=== PATIENT | female | born 1980 | race African-American/Black ===

== ENCOUNTER 2018-08-10 10:58 | Outpatient (CLI) | payer BC ==
--- NOTE | 2018-08-10 13:18 | MRI ---
MRI BRAIN WITH AND WITHOUT IV CONTRAST: Date: 08/10/18 HISTORY: Headache. Family history of brain cancer (mother and maternal aunt). FINDINGS: No evidence of infarct, hemorrhage, mass, midline shift, or abnormal extra-axial fluid collections ar e seen. The ventricular size is normal and the basilar cisterns are patent. No abnormal postcontrast enhancement is seen. No restricted diffusion is identified. No blood products are noted on the gradie nt echo sequences. No significant abnormalities are noted on the highly sensitive FLAIR images. The v isualized paranasal sinuses and mastoid air cells are well aerated. IMPRESSION: Normal exam. POS: [facility]
== END 2018-08-10 10:59 | disposition home or self-care (01) ==
LOC: MRI 10:58
PROVIDERS: ATTEND Family Medicine
DX: R51 Headache (principal); Z80.8 Family history of malignant neoplasm of other organs or systems
CPT/HCPCS: 70553

== ENCOUNTER 2018-10-17 07:57 | Outpatient (CLI) | payer BC ==
--- NOTE | 2018-10-17 09:43 | ULT ---
LEFT BREAST ULTRASOUND: HISTORY: Palpable area of the left breast, felt 2 months ago. Palpable focus is no longer present. COMPARISON: None. FINDINGS: Static images of the left breast were performed. Static images are reviewed. FINDINGS: Static images demonstrate multiple left breast lymph nodes in the region of concern of a previous pal pable abnormality. The largest lymph node measures 2.7 x 1.0 cm. Results of the study were conveyed to the patient. IMPRESSION: BIRADS category 2, benign finding. RECOMMENDATION: Annual mammogram. POS: [facility]
== END 2018-10-17 07:58 | disposition home or self-care (01) ==
LOC: BICULT 07:57
PROVIDERS: ATTEND Family Medicine
DX: R92.8 Other abnormal and inconclusive findings on diagnostic imaging of breast (principal)

== ENCOUNTER 2019-11-13 09:45 | Outpatient (CLI) | payer BC ==
--- NOTE | 2019-11-13 10:47 | ULT ---
Exam: Transabdominal and endovaginal pelvic ultrasound HISTORY:Cramping with menses COMPARISON: None TECHNIQUE: Transabdominal and endovaginal imaging of the pelvis is performed. Ovaries are interrogate d with grayscale, color flow, Doppler imaging and spectral wave form analysis FINDINGS: Uterus: Incidental nabothian cysts are identified. There is a solid echotexture mass in the uterine m yometrium measuring 1.7 x 2.0 x 2.5 cm, compatible with intrauterine leiomyoma. There is mild convexity of the anterior margin suggesting a subserosal location Uterus measurin.7 x 4.6 x 7.7 cm. Endometrium: Homogeneous echotexture. Endometrium diameter: 1.2 cm. . Free fluid: None Right ovary: Not appreciated. Right ovary measurement: Not applicable Left ovary: Normal echotexture. 1.5 x 1.5 x 1.4 cm hypoechoic focus which may represent a complex cyst. The wall does appear to be thickened. Left ovary measurements: 2.4 x 2.0 x 3.0 cm Ovarian Doppler: There is vascular flow to the left ovary. IMPRESSION: 1. Intrauterine leiomyoma. 2. Homogeneous endometrium, measuring 1.2 cm. 3. Slightly complex left ovarian cyst is favored. Follow-up ultrasound in 8 weeks is recommended.
== END 2019-11-13 09:46 | disposition home or self-care (01) ==
LOC: BICULT 09:45
PROVIDERS: ATTEND Family Medicine
DX: R10.2 Pelvic and perineal pain (principal); N83.202 Unspecified ovarian cyst, left side; D25.9 Leiomyoma of uterus, unspecified
CPT/HCPCS: 76856

== ENCOUNTER 2020-04-03 15:39 | Outpatient (CLI) | payer BC ==
--- NOTE | 2020-04-03 16:41 | MMO ---
Bilateral MAMMO Bilat Screen [facility]. CLINICAL HISTORY: Patient is 39 years old and is seen for screening. The patient has the following family history of breast cancer: paternal aunt, malignant (generic). The patient has no personal history of cancer. VIEWS: The views performed were: bilateral craniocaudal with tomosynthesis and bilateral mediolateral oblique with tomosynthesis. FILMS COMPARED: The present examination has been compared to prior imaging studies performed at [facility] on 08/24/2018, and at [facility] on 10/17/2018. This study has been interpreted with the assistance of computer-aided detection. MAMMOGRAM FINDINGS: The breasts are almost entirely fat. There are no suspicious masses, suspicious calcifications, or new areas of architectural distortion. IMPRESSION: THERE IS NO MAMMOGRAPHIC EVIDENCE OF MALIGNANCY. A ROUTINE FOLLOW-UP MAMMOGRAM IN 1 YEAR IS RECOMMENDED. THE RESULTS OF THIS EXAM WERE SENT TO THE PATIENT. ACR BI-RADS Category 1 - Negative MAMMOGRAPHY NOTE: 1. A negative mammogram report should not delay a biopsy if a dominant of clinically suspicious mass is present. 2. Approximately 10% to 15% of breast cancers are not detected by mammography. 3. Adenosis and dense breasts may obscure an underlying neoplasm. Reported by: ADARSH CANO MD Electonically Signed: [id number]
== END 2020-04-03 15:40 | disposition home or self-care (01) ==
LOC: BICMAMMO 15:39
PROVIDERS: ATTEND Family Medicine
DX: Z12.31 Encounter for screening mammogram for malignant neoplasm of breast (principal); Z80.3 Family history of malignant neoplasm of breast
CPT/HCPCS: 77063; 77067

== ENCOUNTER 2020-11-19 11:58 | Outpatient (CLI) | payer BC | END 2020-11-19 11:59 | disposition home or self-care (01) | LOC: BICRAD 11:58 | PROVIDERS: ATTEND Physician Assistant | DX: M25.562 Pain in left knee (principal) ==

== ENCOUNTER 2021-07-15 15:18 | Outpatient (CLI) | payer BC | END 2021-07-15 15:19 | disposition home or self-care (01) | LOC: BICMAMMO 15:18 | PROVIDERS: ATTEND Family Medicine | DX: Z12.31 Encounter for screening mammogram for malignant neoplasm of breast (principal); Z80.3 Family history of malignant neoplasm of breast | CPT/HCPCS: 77063; 77067 ==

== ENCOUNTER 2022-11-28 00:34 | Emergency (ER) | payer BC ==
[2022-11-28] MEDS ORDERED: HYDROcodone/Acetaminophen 5/325 mg Tablet ONE (01:26)
[2022-11-28] MEDS ORDERED: Dexamethasone 10 MG/ML VIAL ONE (01:26)
[2022-11-28 02:16] LABS: BHCG - Serum Negative (NEGATIVE); Pregs Control Background? CLEAR/WHITE (CLR/WHITE); Pregs Control Bar Appear? YES (CONTROL BAR)
== END 2022-11-28 03:48 | disposition home or self-care (01) ==
LOC: ERS 00:34
DX: M54.41 Lumbago with sciatica, right side (principal)
CPT/HCPCS: 36415; 72131; 84703; 96372; J1100

== ENCOUNTER 2023-03-10 08:02 | Outpatient (CLI) | payer BC | END 2023-03-10 08:03 | disposition home or self-care (01) | LOC: BICRAD 08:02 | PROVIDERS: ATTEND Family Medicine | DX: Z01.818 Encounter for other preprocedural examination (principal) | CPT/HCPCS: 71046 ==

== ENCOUNTER 2023-05-03 16:46 | Emergency (ER) | payer BC ==
[~2023-05-03 16:46] MED LIST: Iopamidol-370 76% 500 ML MDV (1 ML CHARGE) ONE
[2023-05-03 18:18] LABS: #Monocytes 0.7 thou/uL (0.11-0.59); #Neutrophils 3.7 thou/uL (1.40-6.50); %Basophils 0.3 % (0.0-1.0); %Eosinophils 0.6 % (0.0-10.0); %Lymphocytes 34.2 % (21.0-51.0); %Monocytes 9.9 % (0.0-10.0); %Neutrophils 54.7 % (42.0-75.0); Hematocrit 34.2 % (36.0-47.0); Hemoglobin 10.7 g/dL (12.0-16.0); Mean Corpuscular HGB CONC 31.3 g/dL (32.0-36.0); Mean Corpuscular Hemoglobin 25.9 pg (27.0-31.0); Mean Corpuscular Volume 82.8 fl (78.0-98.0); Mean Platelet Volume 10.3 fL (7.4-10.4); Platelet Count 229 10x3/uL (130-400); RBC Distribution Width 14.7 % (11.5-14.5); Red Blood Cell (RBC) Count 4.13 mill/uL (4.20-5.40); White Blood Cell (WBC) Count 6.8 10x3/uL (4.8-10.8)
[2023-05-03 18:41] LABS: ALT (SGPT) Less than 7 U/L (8-55); AST (SGOT) 15 U/L (5-34); Albumin 3.8 g/dL (3.5-5.0); Alkaline Phosphatase 52 U/L (40-110); Anion Gap 12 mmol/L (10-20); BUN (Urea Nitrogen) 12 mg/dL (7.0-18.7); Bilirubin, Total 0.3 mg/dL (0.2-1.2); Calc. Creatinine Clearance 0 mL/min (70-130); Calcium 8.7 mg/dL (7.8-10.44); Carbon Dioxide 21 mmol/L (22-29); Chloride 109 mmol/L (98-107); Estimated GFR 102; Globulin 2.6 g/dL (2.4-3.5); Glucose 82 mg/dL (70-105); Lipase 28 U/L (8-78); Potassium 4.2 mmol/L (3.5-5.1); Protein, Total 6.4 g/dL (6.0-8.3); Sodium 138 mmol/L (136-145)
[2023-05-03 18:56] LABS: BHCG - Serum Negative (NEGATIVE); Pregs Control Background? CLEAR/WHITE (CLR/WHITE); Pregs Control Bar Appear? YES (CONTROL BAR)
[2023-05-03] MEDS ORDERED: Ondansetron PF 4 MG/2 ML Vial ONE (18:57)
[2023-05-03] MEDS ORDERED: Dicyclomine 20 MG TAB ONE (18:57)
[2023-05-03 19:25] LABS: Bacteria/HPF None Seen HPF (None Seen); Bilirubin Negative (Negative); Blood, Urine Negative (Negative); CAUTI Indications for Culture Pelvic or flank pain; Clarity Clear (Clear); Glucose, Urine (Dipstick) Normal (Negative); Ketone, Urine Negative (Negative); Leukocyte Negative Leu/uL (Negative); Nitrite Negative (Negative); Protein, Urine (Dipstick) Negative (Neg-Trace); RBC/HPF 0-3 HPF (0-3); Specific Gravity, Urine 1.018 (1.002-1.036); Squamous Epithelial 0-3 HPF (0-3); Urobilinogen Normal mg/dL (Less than 2); WBC/HPF 0-3 HPF (0-3); pH, Urine 6.5 (5.0-9.0)
[2023-05-03 19:27] LABS: Urine Culture Reflex No No
== END 2023-05-03 21:01 | disposition home or self-care (01) ==
LOC: ERS 16:46
DX: I72.8 Aneurysm of other specified arteries (principal); D64.9 Anemia, unspecified
CPT/HCPCS: 36415; 74177; 80053; 81001; 83690; 84703; 85025; 96374; J2405; Q9967

== ENCOUNTER 2023-07-05 07:29 | Outpatient (CLI) | payer BC ==
[2023-07-05] MEDS ORDERED: Iopamidol-370 76% 500 ML MDV (1 ML CHARGE) ONE (10:25)
== END 2023-07-05 07:30 | disposition home or self-care (01) ==
LOC: BICCT 07:29
PROVIDERS: ATTEND Thoracic Surgery (Cardiothoracic Vascular Surgery)
DX: I72.8 Aneurysm of other specified arteries (principal)
CPT/HCPCS: 74175

== ENCOUNTER 2023-09-29 09:00 | Outpatient (CLI) | payer BC | END 2023-09-29 09:01 | disposition home or self-care (01) | LOC: BICMAMMO 09:00 | PROVIDERS: ATTEND Family Medicine | DX: Z12.31 Encounter for screening mammogram for malignant neoplasm of breast (principal); Z80.3 Family history of malignant neoplasm of breast; Z98.890 Other specified postprocedural states | CPT/HCPCS: 77063; 77067 ==